=== PATIENT | male | born 1980 | race Caucasian/White ===

== ENCOUNTER 2023-02-14 09:04 | Outpatient (CLI) | payer OTHER, SELFPAY | END 2023-02-14 09:05 | disposition home or self-care (01) | LOC: NFLDREF 02-16 01:22 | PROVIDERS: PCP Family Medicine; Referring Provider Family Medicine; Visit Provider Family Medicine | DX: Z00.00 Encounter for general adult medical examination without abnormal findings (principal); I10 Essential (primary) hypertension; R73.01 Impaired fasting glucose; R79.89 Other specified abnormal findings of blood chemistry | CPT/HCPCS: 80053; 80061 ==